=== PATIENT | female | born 1965 | race Hispanic/Latino ===

== ENCOUNTER 2018-10-05 02:38 | Emergency (ER) | payer OTHER ==
[2018-10-05 03:10] LABS: APPEARANCE,URINE Clear (CLEAR); BILIRUBIN,URINE Negative (NEGATIVE); COLOR,URINE Yellow (YELLOW); GLUCOSE, URINE (UA) Negative (NEGATIVE); KETONES,URINE Negative (NEGATIVE); LEUKOCYTE ESTERASE ,URINE Negative (NEGATIVE); NITRATE,URINE Negative (NEGATIVE); OCCULT BLOOD,URINE Negative (NEGATIVE); PROTEIN,URINE Negative (NEGATIVE)
[2018-10-05 03:19] LABS: BASOPHILS % (AUTO) 1.2 % (0.0-5.0); EOSINOPHILS % (AUTO) 0.9 % (0.0-8.0); HEMATOCRIT 30.6 % (36-48); LYMPHOCYTES % (AUTO) 40.9 % (21.0-51.0); MEAN CORPUSCULAR HEMOGLOBIN 28.9 pg (27.0-33.0); MEAN CORPUSCULAR HGB CONC 33.9 g/dL (32.0-36.0); MEAN CORPUSCULAR VOLUME 85.4 fL (79-99); MONOCYTES % (AUTO) 7.2 % (3.0-13.0); NEUTROPHILS % (AUTO) 49.8 % (40.0-77.0); PLATELET COUNT (AUTO) 236 K/uL (130-400); RED BLOOD CELL COUNT(AUTO) 3.58 MIL/uL (4.00-5.50); RED CELL DISTRIBUTION WIDTH 16.8 % (11.0-15.5); WHITE BLOOD COUNT (AUTO) 4.3 K/uL (4.8-10.8)
[2018-10-05 03:31] LABS: POTASSIUM 3.6 mmol/L (3.5-5.1)
[2018-10-05 03:37] LABS: ALBUMIN 3.4 g/dL (3.5-5.0); BILIRUBIN,TOTAL 0.5 mg/dL (0.2-1.0); TOTAL PROTEIN, SERUM 7.4 g/dL (6.0-8.3)
[2018-10-05] MEDS ORDERED: FAMOTIDINE/PF 20 MG/2 ML VIAL IV ONE (04:42)
[2018-10-05] MEDS ORDERED: HYOSCYAMINE SULFATE 0.125 MG TAB.SUBL SL ONE (04:57)
[2018-10-05] MEDS ORDERED: ONDANSETRON HCL 4 MG/2 ML VIAL ONE (05:04)
== END 2018-10-05 05:52 | disposition left against medical advice (07) ==
LOC: EDH 02:38
DX: K52.9 Noninfective gastroenteritis and colitis, unspecified (principal); E83.51 Hypocalcemia; L93.0 Discoid lupus erythematosus; J45.909 Unspecified asthma, uncomplicated; Z90.49 Acquired absence of other specified parts of digestive tract; Z90.710 Acquired absence of both cervix and uterus; Z90.89 Acquired absence of other organs; Z98.890 Other specified postprocedural states; Z88.0 Allergy status to penicillin; Z88.5 Allergy status to narcotic agent
CPT/HCPCS: 36415; 80053; 81003; 82550; 83690; 84100; 84484; 85025; 86677; 93005; 96365; 96375; 99285; J2405; J3490

== ENCOUNTER 2018-11-15 05:50 | Day surgery (SDC) | payer OTHER ==
[2018-11-13 10:23] VITALS: BP 106/57
[2018-11-13 10:29] LABS: BASOPHILS % (AUTO) 0.5 % (0.0-5.0); EOSINOPHILS % (AUTO) 0.1 % (0.0-8.0); LYMPHOCYTES % (AUTO) 26.5 % (21.0-51.0); MEAN CORPUSCULAR HEMOGLOBIN 31.1 pg (27.0-33.0); MEAN CORPUSCULAR HGB CONC 33.9 g/dL (32.0-36.0); MEAN CORPUSCULAR VOLUME 91.8 fL (79-99); MONOCYTES % (AUTO) 8.9 % (3.0-13.0); PLATELET COUNT (AUTO) 251 K/uL (130-400); RED BLOOD CELL COUNT(AUTO) 3.16 MIL/uL (4.00-5.50); RED CELL DISTRIBUTION WIDTH 14.6 % (11.0-15.5); WHITE BLOOD COUNT (AUTO) 5.6 K/uL (4.8-10.8)
[2018-11-13 10:30] LABS: APPEARANCE,URINE Clear (CLEAR); BILIRUBIN,URINE Negative (NEGATIVE); COLOR,URINE Yellow (YELLOW); GLUCOSE, URINE (UA) Negative (NEGATIVE); KETONES,URINE Negative (NEGATIVE); LEUKOCYTE ESTERASE ,URINE Negative (NEGATIVE); NITRATE,URINE Negative (NEGATIVE); OCCULT BLOOD,URINE Negative (NEGATIVE); PROTEIN,URINE Negative (NEGATIVE)
[2018-11-13 10:36] LABS: POTASSIUM 3.5 mmol/L (3.5-5.1)
[2018-11-13 10:41] LABS: INR 0.95 (0.85-1.15); PARTIAL THROMBOPLASTIN TIME 31.1 SEC (26.3-35.5)
--- NOTE | 2018-11-14 10:18 | NUR ---
ABNORMAL LABS ABNORMAL LABS HGB 9.8 HCT 29.0 REPORTED TO ZEKE BARR. NO FURTHER ORDERS GIVEN, MAY PROCEED WITH PLANNED PROCEDURE.
[2018-11-15] VITALS (8 sets, daily range): BP systolic 85–140; BP diastolic 46–74
[~2018-11-15] VITALS: Ht 149.9 cm; Wt 72.1 kg
[~2018-11-15 05:50] MED LIST: CALC600T12 PO; CARV3.12 PO; FURO20TA4 PO; FURO40TA5 PO; HYDR-4068 PO; LEVO100 PO; METO10TA3 PO; PANT40TA25 PO; POTA-79 PO; SACU1TAB PO; TRAZ-185 PO
[2018-11-15] MEDS ORDERED: SODIUM CHLORIDE 0.9% 1000ML 1,000 ML IV ONE (07:00)
--- NOTE | 2018-11-15 07:25 | NUR ---
BOTH PATIENT AND FAMILY INFORMED OF DELAY ON PROCEDURE, BOTH VERBALIZED UNDERSTANDING AND AGREED TO WAIT.
--- NOTE | 2018-11-15 11:00 | NUR ---
UPDATE STATUS ON START OF PROCEDURE, APOLOGIZE FOR DELAY, BOTH PATIENT AND DAUGHTER AGREED TO WAIT. PT OFFERED TO GO TO BATHROOM.
[2018-11-15] MEDS ORDERED: FENTANYL CITRATE PF 50 MCG/1 ML 2ML VIAL ONE (14:27)
[2018-11-15] MEDS ORDERED: IOHEXOL 350 MG/ML 100ML INFUS..BTL IV ONE (14:27)
[2018-11-15] MEDS ORDERED: BIVALIRUDIN 250 MG/VIAL IV ONE (14:27)
[2018-11-15] MEDS ORDERED: IOHEXOL-350 50ML VIAL IV ONE (14:27)
[2018-11-15] MEDS ORDERED: MIDAZOLAM HCL 1 MG/ML 2ML VIAL ONE ×2 (14:27→15:00)
[2018-11-15] MEDS ORDERED: LIDOCAINE HCL 1% 20 ML VIAL ONE (14:27)
[2018-11-15] MEDS ORDERED: NITROGLYCERIN 5 MG/ML 10 ML VIAL IV ONE (14:28)
[2018-11-15] MEDS ORDERED: LABETALOL 20 MG/4 ML DISP.SYRIN IV ONE (15:05)
[2018-11-15] MEDS ORDERED: HYDRALAZINE HCL 20 MG/ML VIAL ONE (15:09)
[2018-11-15] MEDS ORDERED: SODIUM CHLORIDE 0.9% 1000ML 1,000 ML IV SCH (15:10)
[2018-11-15] MEDS ORDERED: GLUCAGON 1MG KIT 1 MG ML IM PRN (15:15)
[2018-11-15] MEDS ORDERED: HYDRALAZINE HCL 20 MG/ML VIAL IV PRN (15:15)
[2018-11-15] MEDS ORDERED: METOPROLOL TARTRATE 1 MG/ML 5ML VIAL IV PRN (15:15)
[2018-11-15] MEDS ORDERED: DEXTROSE 50%-WATER 50 ML DISP.SYRIN IV PRN (15:15)
[2018-11-15 16:53] LABS: HEMATOCRIT 31.4 % (36-48)
--- NOTE | 2018-11-15 17:17 | NUR ---
NURSING: PT ARRIVED AAOX3, C/O LOWER BACK PAIN OF 8/10, VERY ANXIOUS, CONSTANTLY MOVING, DSTAT TO RT GROIN IS D/I NO ACTIVE BLEEDING OR HEMATOMA. PT WAS INSTRUCTED PT CANNOT MOVE RT LEG DUE TO PROCEDURE AND BEDREST ORDERED BY DOCTOR. HAD DIFFICULTY KEEPING PT STILL, PT CRYING, YELLING STATING SHE WANTS TO GET OUT OF THE BED, TRASHING ABOUT, DR. FERRIS INFORMED AND ASSESSED PT AT BEDSIDE. INSTRUCTED TO HAVE AN H&H, AND CT SCAN TO R/O RETO PERITONIAL HEMATOMA. ORDERS PLACED IN SYSTEM, DEPTS CALLED FOR DRAW AND SCAN. PT TRANSFERRED BY BED TO RADIOLOGY DEPT. FOR SCAN AT 1720 , PT HAD CALM DOWN , STATES LOWER BACK PAIN.
--- NOTE | 2018-11-15 19:21 | NUR ---
NURSING: SPOKE TO DR. SUAREZ RA, RESULTS FOR CT SCAN OF ABD/ AND PELVIS ARE NEGATIVE, NOTES IN INFINITE SYSTEM. AT 1925: REPORTED H&H AND CT SCAN RESULTS TO , STATES OK TO D/C PT HOME. NEW ORDER FOR HEPARIN FLUSH PER PROTOCOL.
[2018-11-15] MEDS ORDERED: HEPARIN SODIUM/PF 100UNIT/ML 5ML SYRINGE IV SCH (19:45)
--- NOTE | 2018-11-15 20:14 | NUR ---
PT AAOX3 , DRESSING TO RT GROIN IS D/I, NO BLEEDING OR HEMATOMA TO RT GROIN. PT ABLE TO SIT UP IN A CHAIR AND VOIDED. ABLE TO GO TOLERATE FLUIDS. STATES SORENESS TO RT GROIN AND FEELS BETTER FROM THE BACK PAIN ONCE SITTING UP IN A CHAIR. VITALS STABLE NO DISTRESS. SITTING IN RECLINER, CALM. PORT-A-CATH WAS ACCSSED, FLUSHED WITH HEPARIN PER PROTOCOL. D/C INSTRUCTIONS GIVEN TO DAUGHTER, INSTRUCTED TO CALL [facility] FOR F/U APPOINTMENT ON SUNDAY TO BE SEEN IN 2-[address] FERRIS OR PA. PT DRESSED AND TAKEN OUT IN WHEELCHAIR , DRIVEN HOME BY DAUGHTER. PT AND DAUGHTER VERBALIZED UNDERSTANDING OR INSTRUCTIONS.
== END 2018-11-15 20:00 | disposition home or self-care (01) ==
LOC: DAH 05:50
PROVIDERS: ATTEND Internal Medicine Cardiovascular Disease
DX: I42.0 Dilated cardiomyopathy (principal); I50.22 Chronic systolic (congestive) heart failure; E03.9 Hypothyroidism, unspecified; K31.84 Gastroparesis; F15.90 Other stimulant use, unspecified, uncomplicated; Z88.0 Allergy status to penicillin; Z88.8 Allergy status to other drugs, medicaments and biological substances; Z87.891 Personal history of nicotine dependence; Z79.01 Long term (current) use of anticoagulants; Z79.899 Other long term (current) drug therapy; Z90.49 Acquired absence of other specified parts of digestive tract; Z98.890 Other specified postprocedural states; Z90.710 Acquired absence of both cervix and uterus; Z82.49 Family history of ischemic heart disease and other diseases of the circulatory system; Z82.3 Family history of stroke; Z83.3 Family history of diabetes mellitus
CPT/HCPCS: 36415 ×2; 71045; 74176; 80048; 81003; 85014; 85018; 85025; 85610; 85730; 93005; 93458; A4606; C1894 ×2; J0360; J1642; J1644; J2250 ×2; J3010; J3490; J7030; Q9965; Q9967 ×2; 99156; 99157; J0583

== ENCOUNTER → 2018-12-30 | Outpatient (CLI) | payer OTHER | END | disposition home or self-care (01) | LOC: SHCH 07:30 | PROVIDERS: ATTEND Internal Medicine Cardiovascular Disease | DX: I50.22 Chronic systolic (congestive) heart failure (principal) | CPT/HCPCS: 78481; A9512 ==

== ENCOUNTER 2019-03-12 07:27 | Observation (INO) | payer OTHER ==
[2019-03-10 14:33] LABS: EOSINOPHILS % (AUTO) 1.1 % (0.0-8.0); LYMPHOCYTES % (AUTO) 17.8 % (21.0-51.0); MEAN CORPUSCULAR HEMOGLOBIN 30.5 pg (27.0-33.0); MEAN CORPUSCULAR HGB CONC 33.5 g/dL (32.0-36.0); MEAN CORPUSCULAR VOLUME 90.9 fL (79-99); MONOCYTES % (AUTO) 1.7 % (3.0-13.0); NEUTROPHILS % (AUTO) 78.4 % (40.0-77.0); PLATELET COUNT (AUTO) 218 K/uL (130-400); RED CELL DISTRIBUTION WIDTH 13.7 % (11.0-15.5); WHITE BLOOD COUNT (AUTO) 3.8 K/uL (4.8-10.8)
[2019-03-10 14:44] LABS: CREATININE 1.5 mg/dL (0.5-1.5); POTASSIUM 3.9 mmol/L (3.5-5.1)
[2019-03-10 14:49] VITALS: BP 100/49
[2019-03-10 15:04] LABS: INR 1.01 (0.85-1.15); PARTIAL THROMBOPLASTIN TIME 31.6 SEC (26.3-35.5); PROTHROMBIN TIME 10.4 SEC (9.6-11.6)
--- NOTE | 2019-03-11 13:07 | NUR ---
ABNORMAL LAB: LEFT MESSAGE AT DR. AYALA'S OFFICE TO RETURN CALL REGARDING ABNORMAL LAB, AWAITING CALL RETURN.
--- NOTE | 2019-03-11 14:38 | NUR ---
RE: ABNORMAL LABS/PCN ALLERGY CALLED ZEKE DAN REGARDING HGB 10.0/HCT 30.0 AND CALCIUM 5.8. ALSO INFORMED HER THAT PATIENT IS ALLERGIC TO PENICILLIN AND DR AYALA HAS ANCEF ORDERED. PER FIORELLA, SHE WILL LOOK AT PATIENT'S LABS AND CALL BACK WITH ORDERS. Addendum: 03/11/19 at 1441 by BRYON LEGGETT RN RN (SHE WILL LOOK AT PATIENT'S PREVIOUS LABS AND CALL BACK WITH ORDERS)
[2019-03-12] VITALS (11 sets, daily range): BP systolic 101–133; BP diastolic 56–74
[~2019-03-12] VITALS: Ht 152.4 cm; Wt 72.6 kg
[~2019-03-12 07:27] MED LIST changes: +CEFAZOLIN SODIUM 1 GM VIAL IVP SCH; -FURO20TA4 PO; +LEVE500T19 PO; -LEVO100 PO; +LEVO125T11 PO; -METO10TA3 PO; +PREM625 PO; +PROM25TA7 PO; +SODIUM CHLORIDE 0.9% 1000ML 1,000 ML IV ONE; +SODIUM CHLORIDE 0.9% 500ML 500 ML IV SCH; +VANCOMYCIN 1GM+NS 250ML 250 ML IV SCH
[2019-03-12 08:15] LABS: ALBUMIN 3.2 g/dL (3.5-5.0); BILIRUBIN,TOTAL 0.3 mg/dL (0.2-1.0); CREATININE 1.2 mg/dL (0.5-1.5); POTASSIUM 3.8 mmol/L (3.5-5.1); TOTAL PROTEIN, SERUM 7.6 g/dL (6.0-8.3)
--- NOTE | 2019-03-12 08:30 | NUR ---
LABS BRITTANIE GIBSON, DR. AYALA'S HERE AT THE STATION, LABS REDRAWN THIS A.M. REVIEWED. ALSO ASKED BRITTANIE IF OK TO USE PT'S PORT A CATH FOR IV ACCESS ( PER PT'S REQUEST), PORT A CATH WAS ACCESSED YESTERDAY AT DR. ARAUJO'S OFFICE SHE WAS GIVEN CALCIUM IV. PER FIORELLA. WAITING ON DR. AYALA'S RESPONSE.
--- NOTE | 2019-03-12 08:45 | NUR ---
NOTE PER DR. LUCY DAN'S CHUTE TENDER, OKAY TO USE POT A CATH FOR IV USE.
[2019-03-12] MEDS ORDERED: LIDOCAINE HCL 1% MDV 50ML VIAL ONE (14:04)
[2019-03-12] MEDS ORDERED: BUPIVACAINE/PF 0.25% 30ML VIAL IJ ONE (14:04)
[2019-03-12] MEDS ORDERED: VANCOMYCIN 1GM+NS 250ML 500 ML IV ONE (14:04)
[2019-03-12] MEDS ORDERED: MEPERIDINE-PF 25 MG/ML SYG ONE ×7 (14:05→16:23)
[2019-03-12] MEDS ORDERED: MIDAZOLAM HCL 1 MG/ML 2ML VIAL ONE ×7 (14:05→16:23)
--- NOTE | 2019-03-12 14:05 | NUR ---
PT TAKEN TO SKILLS AUDITOR BY GÉNESIS BILLY VIA BED. PT STABLE.
[2019-03-12] MEDS ORDERED: ACETAMINOPHEN-CODEINE 300/30MG TAB PO PRN (17:00)
[2019-03-12] MEDS ORDERED: PROMETHAZINE HCL 25 MG TABLET PO PRN (17:00)
--- NOTE | 2019-03-12 17:15 | NUR ---
POST PROCEDURE RECEIVED PT FROM CHALK CUTTER, IN SEMI MALDONADO'S POSITION, A&OX3, CALM COOPERATIVE AND DOES NOT APPEAR TO BE IN ANY DISTRESS NOR ANY NEURO DEFICITS PRESENT. LEFT SHOULDER DRESSING DRY, INTACT AND SECURED WITH ARM SLING. PORT-A-CATH TO RSC ACCESSED, PT RESTING COMFORTABLY, CALL LIGHT WITHIN REACH, PADDED SIDE RAILS UP, FAMILY AT BEDSIDE.
[2019-03-12] MEDS: CALCIUM 600 + VITAMIN D 400 TABLET PO SCH (17:24)
[2019-03-12] MEDS: POTASSIUM CHLORIDE 20 MEQ ERTAB PO SCH (17:25)
[2019-03-12] MEDS: LEVETIRACETAM 500 MG TABLET PO SCH (20:48)
[2019-03-12] MEDS: ***HM***(Sacubitril/Valsartan (Entresto 24 mg-26 mg Tablet) 1 EACH PO SCH (20:48)
[2019-03-12] MEDS: CARVEDILOL 3.125 MG TABLET PO SCH (20:48)
[2019-03-12] MEDS ORDERED: TRAZODONE HCL 50 MG TAB PO SCH (21:00)
[2019-03-12] MEDS: HYDROCODONE/ACETAMINOPHEN 10/325 MG TAB PO PRN (21:04)
[2019-03-13] MEDS: HYDROCODONE/ACETAMINOPHEN 10/325 MG TAB PO PRN ×2 (01:36→08:07)
[2019-03-13 04:00] VITALS: BP 112/73
[2019-03-13] MEDS ORDERED: LEVOTHYROXINE 125 MCG TABLET PO SCH (06:30)
[2019-03-13] MEDS ORDERED: PANTOPRAZOLE SODIUM 40 MG TABLET.DR PO SCH (07:30)
--- NOTE | 2019-03-13 07:30 | NUR ---
ASSESSMENT ENCOUNTERED PT A&OX3, CALM COOPERATIVE AND DOES NOT APPEAR TO BE IN ANY DISTRESS NOR ANY NEURO DEFICITS PRESENT. PT C/O LEFT SHOULDER INCISIONAL PAIN, LEFT SHOULDER DRESSING DRY, INTACT AND SECURED WITH ARM SLING PRESENT. 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 CALL LIGHT WITHIN REACH, FAMILY AT BEDSIDE.
[2019-03-13 07:54] VITALS: BP 104/63
[2019-03-13] MEDS: CALCIUM 600 + VITAMIN D 400 TABLET PO SCH (08:07)
[2019-03-13] MEDS: LEVETIRACETAM 500 MG TABLET PO SCH (08:08)
[2019-03-13] MEDS: POTASSIUM CHLORIDE 20 MEQ ERTAB PO SCH (08:08)
[2019-03-13] MEDS: CARVEDILOL 3.125 MG TABLET PO SCH (08:08)
[2019-03-13] MEDS: ***HM***(Sacubitril/Valsartan (Entresto 24 mg-26 mg Tablet) 1 EACH PO SCH (08:09)
[2019-03-13] MEDS ORDERED: ESTROGENS,CONJUGATED 0.625 MG TAB PO SCH (09:00)
[2019-03-13] MEDS ORDERED: FUROSEMIDE 40 MG TABLET PO SCH (09:00)
[2019-03-13] MEDS ORDERED: HEPARIN SODIUM/PF 100UNIT/ML 5ML SYRINGE IV SCH (12:08)
[2019-03-13 12:20] VITALS: BP 101/60
--- NOTE | 2019-03-13 13:00 | NUR ---
DISCHARGE INSTRUCTIONS GIVEN, HEPARIN INJECTED TO PORTACATH, BAEZA NEEDLE REMOVED, DISCHARGED HOME TO FAMILY VEHICLE VIA WHEELCHAIR.
== END 2019-03-13 13:57 | disposition home or self-care (01) ==
LOC: DAH 07:27 → SUH 07:27 → 2AH 07:28 → SUH 07:28
PROVIDERS: ADMIT Internal Medicine; ATTEND Internal Medicine
DX: I50.22 Chronic systolic (congestive) heart failure (principal); I42.8 Other cardiomyopathies; M32.9 Systemic lupus erythematosus, unspecified; E03.9 Hypothyroidism, unspecified; E05.00 Thyrotoxicosis with diffuse goiter without thyrotoxic crisis or storm; G89.29 Other chronic pain; M54.9 Dorsalgia, unspecified; I42.0 Dilated cardiomyopathy; Z90.49 Acquired absence of other specified parts of digestive tract; Z87.891 Personal history of nicotine dependence; Z95.828 Presence of other vascular implants and grafts; Z90.710 Acquired absence of both cervix and uterus; Z98.1 Arthrodesis status; Z90.89 Acquired absence of other organs; Z79.899 Other long term (current) drug therapy; Z88.0 Allergy status to penicillin; Z88.4 Allergy status to anesthetic agent
CPT/HCPCS: 33249; 36415 ×2; 71045; 80048; 80053; 85025; 85610; 85730; A4215; A4216; A4221; A4222; A4223 ×3; A4600; A4606; A4663; C1722; C1895; G0378 ×21; J1642; J2175 ×7; J2250 ×7; J3370; J3490 ×2; J7030; 99156; 99157

== ENCOUNTER → 2019-10-10 | Outpatient (CLI) | payer OTHER ==
[~2019-10-10] MED LIST changes: -CALC600T12 PO; +CALC600T15 PO; -CEFAZOLIN SODIUM 1 GM VIAL IVP SCH; -SODIUM CHLORIDE 0.9% 1000ML 1,000 ML IV ONE; -SODIUM CHLORIDE 0.9% 500ML 500 ML IV SCH; -VANCOMYCIN 1GM+NS 250ML 250 ML IV SCH
== END | disposition home or self-care (01) ==
LOC: RAH 10:00
PROVIDERS: ATTEND Internal Medicine
DX: K76.0 Fatty (change of) liver, not elsewhere classified (principal); Z90.49 Acquired absence of other specified parts of digestive tract
CPT/HCPCS: 76700

== ENCOUNTER 2019-10-14 06:09 | Day surgery (SDC) | payer OTHER ==
--- NOTE | 2019-10-11 13:10 | NUR ---
NO ANSWER, LEFT MESSAGE. OF ARRIVAL TIME AND TO REPORT TO MAIN ENTRANCE (FRONT)
[~2019-10-14] VITALS: Ht 149.9 cm; Wt 77.1 kg
[2019-10-14] MEDS ORDERED: SODIUM CHLORIDE 0.9% 1000ML 1,000 ML IV ONE (06:24)
[2019-10-14] MEDS ORDERED: LIDOCAINE HCL 2% 20ML ONE (07:41)
[2019-10-14] MEDS ORDERED: PROPOFOL 10 MG/ML 20ML VIAL IV ONE (07:41)
[2019-10-14 07:55] VITALS: BP 84/58
[2019-10-14 08:01] VITALS: BP 92/56
[2019-10-14 08:06] VITALS: BP 90/57
[2019-10-14 08:11] VITALS: BP 88/57
[2019-10-14 08:19] VITALS: BP 92/59
== END 2019-10-14 08:20 | disposition home or self-care (01) ==
LOC: DAH 06:09 → ENDO 06:09
PROVIDERS: ATTEND Internal Medicine
DX: R10.13 Epigastric pain (principal); K29.50 Unspecified chronic gastritis without bleeding; K44.9 Diaphragmatic hernia without obstruction or gangrene; K21.0 Gastro-esophageal reflux disease with esophagitis; E03.9 Hypothyroidism, unspecified; M32.9 Systemic lupus erythematosus, unspecified; J45.909 Unspecified asthma, uncomplicated; Z88.5 Allergy status to narcotic agent; Z88.8 Allergy status to other drugs, medicaments and biological substances; Z88.0 Allergy status to penicillin; Z90.710 Acquired absence of both cervix and uterus; Z98.890 Other specified postprocedural states
CPT/HCPCS: 36415; 43239; 87635; 88305; 88342; 93005; A4215; A4221; A4222; A4223; A4606; A4620; A4663; J2704; J3490; J7030; 43200

== ENCOUNTER → 2022-07-20 | Outpatient (CLI) | payer OTHER ==
[~2022-07-20] MED LIST changes: +CALC-1125 PO; -CALC600T15 PO; -PANT40TA25 PO; +PANT40TA54 PO
== END | disposition home or self-care (01) ==
LOC: SHCH 12:56
PROVIDERS: ATTEND Internal Medicine Cardiovascular Disease
DX: I50.9 Heart failure, unspecified (principal); I47.20 Ventricular tachycardia, unspecified; I51.7 Cardiomegaly; I51.89 Other ill-defined heart diseases; Z95.0 Presence of cardiac pacemaker
CPT/HCPCS: 93306